=== PATIENT | female | born 1970 | race African-American/Black ===

== ENCOUNTER 2018-03-24 05:43 | Inpatient (IN) | payer MEDICARE, MEDICAID ==
[~2018-03-24] VITALS: Ht 160 cm; Wt 65.8 kg
[2018-03-24 06:18] LABS: BASOPHILS % 0.6 % (0.0-2.0); EOSINOPHILS % 3.7 % (0.0-5.0); HEMATOCRIT. 32.5 % (36.0-48.0); HEMOGLOBIN. 10.4 g/dL (12.0-16.0); LYMPHOCYTES % 38.1 % (20.0-50.0); MEAN CORPUSCULAR HEMOGLOBIN 25.2 pg (28.0-32.0); MEAN CORPUSCULAR VOLUME 78.9 fL (81.0-99.0); MONOCYTES % 9.8 % (2.0-8.0); NEUTROPHILS % 47.8 % (40.0-76.0); PLATELET 236 x1000/uL (130-400); RED BLOOD CELL COUNT 4.12 mill/uL (4.2-5.4); RED CELL DISTRIBUTION WIDTH 17.3 % (11.6-14.6)
[2018-03-24 06:22] LABS: CLARITY URINE CLEAR (CLEAR); COLOR URINE YELLOW (YELLOW); KETONES URINE NEGATIVE (NEGATIVE); LEUKOCYTE ESTERASE URINE NEGATIVE (NEGATIVE); NITRITE URINE NEGATIVE (NEGATIVE); OCCULT BLOOD URINE 1+ (NEGATIVE); PROTEIN URINE NEGATIVE (NEGATIVE); SPECIFIC GRAVITY URINE 1.009 (1.005-1.030); UROBILINOGEN URINE 0.2 E.U./dL (0.2-1.0)
[2018-03-24 06:27] LABS: PARTIAL THROMBOPLASTIN TIME 26.6 sec (23.4-31.0); PROTHROMBIN TIME 10.4 sec (9.1-11.1)
[2018-03-24 06:35] LABS: CHLORIDE 105 mEq/L (98-107)
[2018-03-24] MEDS ORDERED: LACTATED RINGERS 1,000 ML IV SCH (06:40)
[2018-03-24 07:01] LABS: UCG SCREEN NEGATIVE
[2018-03-24] MEDS ORDERED: MIDAZOLAM HCL 5 MG/5 ML VIAL ONE (09:31)
[2018-03-24] MEDS ORDERED: BUPIVACAINE HCL 0.5% (5MG/ML) 50ML ONE (09:35)
[2018-03-24] MEDS ORDERED: VASOPRESSIN 20 UNIT/ML 1ML ONE ×2 (09:36→10:44)
[2018-03-24] MEDS ORDERED: PROPOFOL 200MG/20ML VIAL IV ONE ×2 (10:00→12:00)
[2018-03-24] MEDS ORDERED: FENTANYL CITRATE/PF 50MCG/ML 2ML VIAL IV PRN (10:45)
[2018-03-24] MEDS ORDERED: ONDANSETRON HCL 4MG/2ML VIAL IV PRN ×2 (10:45→12:45)
[2018-03-24] MEDS ORDERED: HYDROMORPHONE HCL/PF 2MG/ML (OR) ONE (11:23)
[2018-03-24] MEDS ORDERED: PHENYLEPHRINE HCL 10 MG/ML 1ML (IV VIAL) IV ONE (11:38)
[2018-03-24] MEDS ORDERED: DEXAMETHASONE 4MG/ML 1ML VIAL ONE (11:38)
[2018-03-24] MEDS ORDERED: EPHEDRINE SULFATE 50MG/ML VIAL ONE (11:38)
[2018-03-24] MEDS ORDERED: ATROPINE SULFATE 0.1MG/ML 10ML DISP.SYRIN ONE (11:42)
[2018-03-24] MEDS ORDERED: GLYCOPYRROLATE 0.2 MG/ML 2ML VIAL ONE (11:43)
[2018-03-24] MEDS: HYDROMORPHONE HCL/PF 2MG/ML CPJ IV PRN ×2 (13:41→14:37)
[2018-03-24 16:00] VITALS: BP 101/57
[2018-03-24] MEDS: MORPHINE SULFATE 4 MG/ML CPJ (NOT FOR IM USE) IV PRN ×2 (18:12→22:18)
[2018-03-24 18:29] VITALS: BP 101/57
[2018-03-24 20:00] VITALS: BP 122/72
[2018-03-25] VITALS: BP 119/74
[2018-03-25] MEDS: MORPHINE SULFATE 4 MG/ML CPJ (NOT FOR IM USE) IV PRN ×5 (01:55→20:16)
[2018-03-25 04:00] VITALS: BP 122/72
[2018-03-25 07:17] LABS: BASOPHILS % 0.1 % (0.0-2.0); EOSINOPHILS % 0.1 % (0.0-5.0); HEMATOCRIT. 24.1 % (36.0-48.0); HEMOGLOBIN. 7.9 g/dL (12.0-16.0); LYMPHOCYTES % 19.5 % (20.0-50.0); MEAN CORPUSCULAR HEMOGLOBIN 25.9 pg (28.0-32.0); MEAN CORPUSCULAR VOLUME 78.7 fL (81.0-99.0); MEAN PLATELET VOLUME 9.8 fl (7.4-10.4); MONOCYTES % 8.9 % (2.0-8.0); NEUTROPHILS % 71.4 % (40.0-76.0); PLATELET 255 x1000/uL (130-400); RED BLOOD CELL COUNT 3.06 mill/uL (4.2-5.4); RED CELL DISTRIBUTION WIDTH 17.6 % (11.6-14.6)
[2018-03-25 08:00] VITALS: BP 116/64
[2018-03-25] MEDS: LACTATED RINGERS 1,000 ML IV SCH (17:26)
[2018-03-25 20:00] VITALS: BP 133/77
[2018-03-26] VITALS: BP 107/64
[2018-03-26] MEDS: LACTATED RINGERS 1,000 ML IV SCH ×3 (01:12→17:31)
[2018-03-26 04:00] VITALS: BP 127/76
[2018-03-26] MEDS: MORPHINE SULFATE 4 MG/ML CPJ (NOT FOR IM USE) IV PRN (04:02)
[2018-03-26 08:00] VITALS: BP 128/82
[2018-03-26] MEDS: ACETAMINOPHEN 325MG TABLET PO PRN ×2 (10:55→17:39)
[2018-03-26 12:00] VITALS: BP 109/71
[2018-03-26] MEDS: CETIRIZINE 10MG TABLET PO SCH (18:40)
[2018-03-26 20:00] VITALS: BP 120/73
[2018-03-27] VITALS: BP 120/69
[2018-03-27] MEDS: LACTATED RINGERS 1,000 ML IV SCH ×2 (01:55→10:32)
[2018-03-27] MEDS: ACETAMINOPHEN 325MG TABLET PO PRN (02:00)
[2018-03-27 04:00] VITALS: BP 115/66
[2018-03-27 08:00] VITALS: BP 124/83
[2018-03-27] MEDS: CETIRIZINE 10MG TABLET PO SCH (08:35)
[2018-03-27 12:00] VITALS: BP 112/70
[2018-03-27 13:41] VITALS: BP 112/70
== END 2018-03-27 14:21 | disposition home or self-care (01) | DRG 742 ==
LOC: ORIP 05:43 → 6EST 16:27
PROVIDERS: ADMIT Obstetrics & Gynecology; ATTEND Obstetrics & Gynecology
PROC: 0UT70ZZ Resection of Bilateral Fallopian Tubes, Open Approach (ICD-10-PCS; 2018-03-24)
PROC: 0UT90ZZ Resection of Uterus, Open Approach (ICD-10-PCS; principal; 2018-03-24 10:00)
DX: D25.9 Leiomyoma of uterus, unspecified (principal); D62 Acute posthemorrhagic anemia; F32.9 Major depressive disorder, single episode, unspecified
CPT/HCPCS: 36415; 71045; 80053; 81003; 81025; 85025; 85610; 85730; 86850; 86900; 88307; 93005; J0461; J1100; J1170; J2250; J2270; J2370; J2405; J2704; J3490; J7120